=== PATIENT | male | born 1970 | race Two or more races ===

== ENCOUNTER 2025-04-08 22:00 | Emergency (ER) | payer MEDICAID, SELFPAY ==
[2025-04-08 23:00] VITALS: BP 124/83; PULSE 103; RESP 20; TEMP 38.9; O2SAT 93
--- NOTE | 2025-04-08 23:27 | EDNOTE_ITS ---
Upper Respiratory Inf. RME/HPI General Chief Complaint: Flu Like Symptoms Stated Complaint: BODYACHES,FEVER,COUGH Time Seen by Provider: 04/08/25 23:20 Source: patient Arrival date/time: 04/08/25 22:00 Mode of arrival: ambulatory Limitations: no limitations RME / HPI RME / HPI Narrative: 54-year-old male presents to the ED with a complaint of a fever x 2 to 3 days with a cough described as phlegmy. Patient tells me he is got phlegm in his chest. MD Complaint: fever and cough Onset (ago): day(s) Duration: intermittent Severity: moderate Severity scale (1-10): 5 Relieving factors: nothing Related Data Previous Rx's ?Medication ?Instructions ?Recorded albuterol sulfate 90 mcg/actuation 2 inh inhalation QI D PRN shortness 04/08/25 aerosol inhaler (Ventolin HFA) of breath or wheezing # 6.7 grams amoxicillin 500 mg capsule 500 mg PO TID #30 caps 01/01 Allergies Allergy/AdvReac Type Severity Reaction Status Date / Time NKA* Allergy Uncoded 04/08/25 22:01 Review of Systems Constitutional Constitutional: Reports system reviewed and no additional complaints, except as documented Eyes Eyes: Reports system reviewed and no additional complaints, except as documented, Denies dry eyes, Denies exophthalmos and Reports floaters Cardiovascular Cardiovascular: Denies chest pain with activity and Denies claudication ED Exam General Limitations: Present no limitations General appearance: Present alert and in no apparent distress Head Head exam: Present atraumatic Eye Eye exam: Present normal appearance and EOMI ENT ENT exam: Present normal exam, normal oropharynx and mucous membranes moist Neck Neck exam: Present normal inspection, full ROM and trachea midline Chest Chest inspection: Present normal inspection and symmetric chest wall rise Respiratory Respiratory exam: Present normal lung sounds bilaterally Cardiovascular Cardiovascular exam: Present regular rate, normal rhythm and normal heart sounds Abdominal Exam Abdominal exam: Present soft and normal bowel sounds Rectal Exam Rectal exam: Present deferred Extremities Exam Extremities exam: Present normal inspection and full ROM Back Exam Back exam: Present normal inspection and full ROM Neurological Exam Neurological exam: Present alert and oriented X3 Psychiatric Psychiatric exam: Present normal affect and normal mood Skin Skin exam: Present warm, dry, intact and normal color Course Quality Measures none Orders Category Date Time Status Ketorolac Inj [Toradol Inj] Med 04/08/25 23:25 Discontinued 30 mg IM X1 ONE Done Vital Signs Vital signs: Vital Signs Temperature 102.1 F H 04/08/25 23:00 Pulse Rate 103 H 04/08/25 23:00 Respiratory Rate 20 04/08/25 23:00 Blood Pressure 124/83 04/08/25 23:00 Pulse Oximetry (%) 93 L 04/08/25 23:00 Oxygen Delivery Method Room Air 04/08/25 23:00 Pulse ox is 93% room air. Upper Respiratory Infection MDM Narrative MDM Narrative:: Patient will have 30 mg of Toradol for his body aches, I was sent to the pharmacy of his choice amoxicillin to be consumed 500 mg 1 p.o. every 8 x 10 days. I will also send an inhaler, a Ventolin inhaler to his pharmacy of choice. He will be discharged in no apparent distress. He is to follow-up with his primary care physician in 1 week. Sooner if worse. Patient data External records reviewed:: Other (specify) Clinical information provided by:: none Social determinants that could affect healthcare access:: none Patient has the following chronic illnesses:: No chronic illnesses How is presenting disease/condition affected by chronic disease/condition?: no chronic disease Evaluation data The following diagnostics were reviewed and interpreted by me:: lab results (No labs necessary) Lab and/or radiology exams considered but not ordered:: No labs or radiology obtained Interpretation Summary: No labs or radiology obtained Medications / Prescriptions Medications or Prescriptions considered but not ordered:: N/A Medication administrations:: Medication Administration History Discontinued Medications Ketorolac Tromethamine (Ketorolac Inj 60 Mg/2 Ml Vial) 30 mg IM X1 ONE Stop: 04/08/25 23:26 Done Consultations Consultation(s) initiated? (list below): No Diagnosis Upper Respiratory Differential Diagnosis: upper respiratory infection, croup, otitis media, sinusitis, viral infection and bronchitis Most likely diagnosis given after review of the tests above:: No labs necessary Admission Indicated Admission indicated?: not indicated Admission Request Was there a request for admission?: No Disposition Plan Disposition Plan: Discharge Discharge Attestation Discharge Attestation: The patient and all family members were given an opportunity to ask questions and understood the discharge instructions. Discharge instructions specifically effects, indications for sooner follow up or return to the emergency department, and the expected course of current diagnosis. Patient condition: Stable Discharge Plan Plan Patient Disposition: HOME (Self Care) Discharge Disposition comment: Patient will be discharged in no apparent distress. Prescriptions/Referrals Prescriptions/Med Rec: New amoxicillin 500 mg capsule 500 mg PO TID Qty: 30 0RF albuterol sulfate [Ventolin HFA] 90 mcg/actuation HFA aerosol inhaler 2 inh inhalation QID PRN (Reason: shortness of breath or wheezing) Qty: 6.7 0RF Problem List Clinical Impression: Acute lower respiratory infection Patient/Caregiver Discharge Instructions Discharge Activity: activity as tolerated Print Language: Indonesian Stand Alone Forms: Lynne Award Info., Patient Portal Info Letter PA/COPY CENTER ASSOCIATE Supervising Physician PA/COPY CENTER ASSOCIATE Supervising Physician: Kb
[2025-04-09] MEDS: KETOROLAC INJ 60 MG/2 ML VIAL 30 MG IM (00:19)
[2025-04-09] MEDS: cefTRIAXone 1,000 MG, LIDOCAINE 1% 20 ML 2.1 ML IM (00:20)
--- NOTE | 2025-04-09 22:20 | PC.NURSE ---
LOOKING FOR PHARMACY PT USES. PT STATES NO MED AT THERE PHARMACY
== END 2025-04-09 00:54 | disposition home or self-care (01) ==
PROVIDERS: Emergency Provider Emergency Medicine
DX: J22 Unspecified acute lower respiratory infection (principal)
CPT/HCPCS: 96372; 99283; J0696; J1885; J3490